=== PATIENT | female | born 1970 | race Two or more races ===

== ENCOUNTER 2022-03-27 16:27 | Emergency (ER) | payer BC, OTHER ==
[~2022-03-27] VITALS: Ht 160 cm; Wt 102.1 kg
[2022-03-27] MEDS ORDERED: traMADol HCL 50 MG TAB PO ONE (17:45)
[2022-03-27] MEDS ORDERED: TRAM-297 PO (19:17)
[2022-03-27 21:08] VITALS: BP 154/74
== END 2022-03-27 21:11 | disposition home or self-care (01) ==
LOC: ER 16:27
DX: S86.911A Strain of unspecified muscle(s) and tendon(s) at lower leg level, right leg, initial encounter (principal); X58.XXXA Exposure to other specified factors, initial encounter; Y93.89 Activity, other specified; Y92.89 Other specified places as the place of occurrence of the external cause; Y99.8 Other external cause status
CPT/HCPCS: 73562; 93971

== ENCOUNTER 2022-06-28 17:04 | Emergency (ER) | payer BC ==
[~2022-06-28] VITALS: Ht 160 cm; Wt 102.0 kg
[~2022-06-28 17:04] MED LIST: TRAM-297 PO
[2022-06-28 17:25] VITALS: BP 169/78
[2022-06-28] MEDS ORDERED: ACETAMINOPHEN 325 MG TAB PO ONE (19:00)
[2022-06-28] MEDS ORDERED: CIPR1SUS8 OT (21:32)
[2022-06-28] MEDS ORDERED: AMOX500C2 PO (21:32)
== END 2022-06-28 22:06 | disposition home or self-care (01) ==
LOC: ER 17:04
DX: H60.92 Unspecified otitis externa, left ear (principal); H66.92 Otitis media, unspecified, left ear; I10 Essential (primary) hypertension; Z20.822 Contact with and (suspected) exposure to COVID-19
CPT/HCPCS: 36415; 87804